=== PATIENT | female | born 1975 | race Caucasian/White ===

== ENCOUNTER 2025-01-12 11:30 | Emergency (ER) | payer BC ==
[2025-01-12] MEDS: Diphtheria,Pertussis(Acell),Tetanus Vaccine 0.5 ML Syringe IM ONE (12:15)
[2025-01-12] MEDS: Ketorolac 30 MG/ML SDV IM ONE (12:15)
== END 2025-01-12 13:15 | disposition home or self-care (01) ==
LOC: JD.ED 11:30
DX: S02.5XXA Fracture of tooth (traumatic), initial encounter for closed fracture (principal); Z79.899 Other long term (current) drug therapy; Z23 Encounter for immunization; W55.22XA Struck by cow, initial encounter; Y93.89 Activity, other specified
CPT/HCPCS: 70486; 90471; 90715; 96372; 99283; J1885